=== PATIENT | female | born 1955 | race Caucasian/White ===

== ENCOUNTER 2016-10-13 10:56 | Outpatient (CLI) | payer OTHER ==
--- NOTE | 2016-10-13 12:27 | DIAGNOSTIC IMAGING REPORT ---
PROCEDURE: XR LUMBAR SPINE 5 VIEWS INDICATION: CHRONIC SEVERE LOW BACK AND LEG PX TECHNIQUE: Five views. COMPARISON: None. FINDINGS: There is spondylosis at L1-2, L2-3, and L4-5 with prominent posterior osteophytic ridges. IMPRESSION: 1. Spondylosis with osteophytic ridges at L1-2, L2-3 and L4-5.
== END 2016-10-13 23:00 ==
LOC: XR SRH 10:56
DX: M47.816 Spondylosis without myelopathy or radiculopathy, lumbar region (principal)